=== PATIENT | female | born 1925 | race Caucasian/White ===

== ENCOUNTER → 2016-10-05 | Outpatient (CLI) | payer MEDICARE ==
--- NOTE | 2016-10-11 09:34 | EKG ---
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 SOME P WAVES WERE SEEN BUT DIFFICULT TO IDENTIFY IN THE COMPUTER, NO PAPER RHYTHM STRIPS. THERE IS A BBB PRESENT NO SIGNIFICANT TACHYCARDIA. THERE WAS A PAUSE OF 1.9 SECONDS. BRADICARDIA WITH A RATE OF 42 Electronically Signed On 10-11-2016 19:45:04 CDT by Jeferson Ghotra
== END | disposition home or self-care (01) ==
LOC: RT 14:46
PROVIDERS: ATTEND Internal Medicine Cardiovascular Disease
DX: I48.91 Unspecified atrial fibrillation (principal); R00.1 Bradycardia, unspecified
CPT/HCPCS: 93226

== ENCOUNTER 2017-03-07 15:50 | Emergency (ER) | payer MEDICARE ==
[~2017-03-07] VITALS: Ht 142.2 cm; Wt 46.7 kg
[2017-03-07] MEDS ORDERED: CYCLOBENZAPRINE 10 MG TABLET. PO ONE (17:20)
--- NOTE | 2017-03-07 17:29 | RAD ---
CT C-Spine without contrast: Clinical History: CERVICAL SPINE PAIN SINCE , NO INJURY Technique: Axial helical images of the cervical spine were obtained without contrast, axial coronal and sagittal reconstruction was performed. Findings: There is no loss of vertebral body stature. There is no prevertebral soft tissue swelling. The vertebral bodies are well aligned. The C1-C2 relationship is normal. The visualized osseous structures appear normal. Evaluation of the central canal is limited without contrast. There is multiple posterior disc bulges resulting in flattening of the thecal sac. There does not appear to be gross flattening of the cervical cord. There is moderate narrowing of multiple neuroforamen. Impression: No acute findings. Clinical correlation suggested. PQRS Compliance Statement: One or more of the following individualized dose reduction techniques were utilized for this examination: 1. Automated exposure control 2. Adjustment of the mA and/or kV according to patient size 3. Use of iterative reconstruction technique Electronically signed by: Silvio Baer III, MD (03/07/2017 5:25 PM) [facility]
[2017-03-07 17:31] VITALS: BP 163/90
[2017-03-07] MEDS ORDERED: CYCL5TAB PO (17:45)
[2017-03-07] MEDS ORDERED: ACET-704 PO (17:45)
--- NOTE | 2017-03-07 17:47 | PHYS DOC ---
Past History Past Medical History: Hypertension Past Surgical History: Other (hiatal hernia) Smoking: Non-smoker Adult General Chief Complaint Chief Complaint: Neck Pain HPI HPI 89-year-old male patient complaining of left-sided neck pain for the last one month as a constant pain that getting for sick movement. Patient states the pain radiated to her left shoulder and denies focal neuro deficit, fever and chills, injury, headache, chest pain, shortness of breath. Rated her pain 10 over 10 and states she was seen by her primary care physician and was told she had this pain because of stress and called her doctor today who suggested physical therapy but patient states she his muscle relaxer because of muscle strain. Review of Systems Review of Systems Constitutional: Denies fever or chills [] Eyes: Denies change in visual acuity, redness, or eye pain [] HENT: Denies nasal congestion or sore throat [] Respiratory: Denies cough or shortness of breath [] Cardiovascular: No additional information not addressed in HPI [] GI: Denies abdominal pain, nausea, vomiting, bloody stools or diarrhea [] : Denies dysuria or hematuria [] Musculoskeletal: Denies back pain or joint pain, reports neck pain [] Integument: Denies rash or skin lesions [] Neurologic: Denies headache, focal weakness or sensory changes [] Endocrine: Denies polyuria or polydipsia [] All other systems were reviewed and found to be within normal limits, except as documented in this note. Current Medications Current Medications Current Medications Medications (Trade) Dose Ordered Sig/Kasandra Start Time Stop Time Status Last Admin Dose Admin Cyclobenzaprine HCl (Flexeril) 5 mg 1X ONCE 03/07/17 17:20 03/07/17 17:21 DC 03/07/17 17:08 5 MG Fentanyl Citrate (Fentanyl 2ml Vial) 25 mcg 1X ONCE 03/07/17 17:20 03/07/17 17:21 DC 03/07/17 17:08 25 MCG Allergies Allergies Allergies Uncoded Allergies Type Severity Reaction Last Updated Verified pcn Allergy Unknown 03/07/17 Physical Exam Physical Exam Constitutional: Well developed, well nourished, moderate distress, non-toxic appearance. [] HENT: Normocephalic, atraumatic, bilateral external ears normal, oropharynx moist, no oral exudates, nose normal. [] Eyes: PERRLA, EOMI, conjunctiva normal, no discharge. [] Neck: Supple, no deformity, muscle spasm in left paraspinal area, no midline tenderness, no meningeal sign Cardiovascular:Heart rate regular rhythm, no murmur [] Lungs & Thorax: Bilateral breath sounds clear to auscultation [] Abdomen: Bowel sounds normal, soft, no tenderness, no masses, no pulsatile masses. [] Skin: Warm, dry, no erythema, no rash. [] Back: No tenderness, no CVA tenderness. [] Extremities: No tenderness, no cyanosis, no clubbing, ROM intact, no edema. [] Neurologic: Alert and oriented X 3, normal motor function, normal sensory function, no focal deficits noted. [] Psychologic: Affect normal, judgement normal, mood normal. [] Current Patient Data Vital Signs Vital Signs Date Time Temp Pulse Resp B/P (MAP) Pulse Ox O2 Delivery O2 Flow Rate FiO2 03/07/17 17:31 55 20 163/90 (114) 96 Room Air EKG EKG [] Radiology/Procedures Radiology/Procedures [] Course & Med Decision Making Course & Med Decision Making Pertinent Imaging studies reviewed. (See chart for details) Patient felt better with treatment with Fentanyl and flexeryl . Cervical spine CT was unremarkable. Plan discharge patient home with diagnosis of cervical sprain. Dragon Disclaimer Dragon Disclaimer This electronic medical record was generated, in whole or in part, using a voice recognition dictation system. Departure Departure: Impression: Primary Impression: Cervical sprain Disposition: HOME, SELF-CARE (At 1741) Condition: IMPROVED Referrals: BOONE GUEVARA MD (PCP) Patient Instructions: Cervical Sprain Additional Instructions: your neck urinary Follow-up with your primary care physician in 2-3 days Scripts Cyclobenzaprine Hcl (CYCLOBENZAPRINE HCL) 5 Mg Tablet 1 TAB PO TID, #20 TAB Prov: SUMMER LAMBERT MD 03/07/17 Acetaminophen With Codeine (TYLENOL WITH CODEINE #3 TABLET) 1 Each Tablet 1 TAB PO Q6HRS, #20 TAB Prov: SUMMER LAMBERT MD 03/07/17 SUMMER LAMBERT MD Mar 07, 2017 17:47
== END 2017-03-07 17:55 | disposition home or self-care (01) ==
LOC: ER 15:50
DX: S13.4XXA Sprain of ligaments of cervical spine, initial encounter (principal); I10 Essential (primary) hypertension; Z88.0 Allergy status to penicillin; X58.XXXA Exposure to other specified factors, initial encounter; Y93.89 Activity, other specified; Y99.8 Other external cause status; Y92.89 Other specified places as the place of occurrence of the external cause
CPT/HCPCS: 72125; 96372; 99284; J3010

== ENCOUNTER 2017-07-13 13:08 | Emergency (ER) | payer MEDICARE ==
[~2017-07-13] VITALS: Ht 142.2 cm; Wt 47.6 kg
[~2017-07-13 13:08] MED LIST: ACET-704 PO; CYCL5TAB PO
--- NOTE | 2017-07-13 13:54 | RAD ---
EXAM: Right knee, 3 views. HISTORY: Pain after moving furniture. COMPARISON: None. FINDINGS: Frontal, lateral and oblique views of the right knee are obtained. There is bone demineralization, limiting evaluation of bony detail. There is medial and lateral compartment chondrocalcinosis. There is enthesopathy along the superior patella. There are vascular calcifications. There is no acute fracture, dislocation or subluxation. IMPRESSION: 1. No acute osseous finding. 2. Bone demineralization. Electronically signed by: Prema Rivero MD (07/13/2017 1:51 PM) [place] [id number]
--- NOTE | 2017-07-13 14:05 | PHYS DOC ---
Past History Past Medical History: Hypertension Past Surgical History: Other Smoking: Non-smoker Alcohol Use: None Drug Use: None Adult General Chief Complaint Chief Complaint: KNEE INJURY HPI HPI 89-year-old woman patient states she was in the garage with a friend and wanted to brick picker something from the ground and twisted her right knee while she wanted to prevent of a fall. Patient denies having fallen or other injuries. Patient noticed pain in complaining of different feeling in lateral side of her knee. Patient denies focal neuro deficit. Review of Systems Review of Systems Constitutional: Denies fever or chills [] Eyes: Denies change in visual acuity, redness, or eye pain [] HENT: Denies nasal congestion or sore throat [] Respiratory: Denies cough or shortness of breath [] Cardiovascular: No additional information not addressed in HPI [] GI: Denies abdominal pain, nausea, vomiting, bloody stools or diarrhea [] : Denies dysuria or hematuria [] Musculoskeletal: Denies back pain, reports joint pain [] Integument: Denies rash or skin lesions [] Neurologic: Denies headache, focal weakness or sensory changes [] Endocrine: Denies polyuria or polydipsia [] All other systems were reviewed and found to be within normal limits, except as documented in this note. Allergies Allergies Allergies Coded Allergies Type Severity Reaction Last Updated Verified clopidogrel Allergy Unknown 07/13/17 Yes Uncoded Allergies Type Severity Reaction Last Updated Verified pcn Allergy Unknown 03/07/17 Physical Exam Physical Exam Constitutional: Well developed, well nourished, no acute distress, non-toxic appearance. [] HENT: Normocephalic, atraumatic Eyes: PERRLA, EOMI, conjunctiva normal, no discharge. [] Neck: Normal range of motion, no tenderness, supple, no stridor. [] Cardiovascular:Heart rate regular rhythm, no murmur [] Lungs & Thorax: Bilateral breath sounds clear to auscultation [] Skin: Warm, dry, no erythema, no rash. [] Back: No tenderness, no CVA tenderness. [] Extremities: No tenderness, no cyanosis, no clubbing, ROM intact, no edema, no sign of injury to right knee. [] Neurologic: Alert and oriented X 3, normal motor function, normal sensory function, no focal deficits noted. [] Psychologic: Affect normal, judgement normal, mood normal. [] EKG EKG [] Radiology/Procedures Radiology/Procedures [[address], [place] [address] IMAGING REPORT Signed PATIENT: DANNY LAMAS ACCOUNT: [id number] : 1925 LOCATION: ER AGE: 89 SEX: F EXAM STATUS: REG ER ORD. PHYSICIAN: SUMMER LAMBERT MD REASON: injury PROCEDURE: KNEE RIGHT 3V EXAM: Right knee, 3 views. HISTORY: Pain after moving furniture. COMPARISON: None. FINDINGS: Frontal, lateral and oblique views of the right knee are obtained. There is bone demineralization, limiting evaluation of bony detail. There is medial and lateral compartment chondrocalcinosis. There is enthesopathy along the superior patella. There are vascular calcifications. There is no acute fracture, dislocation or subluxation. IMPRESSION: 1. No acute osseous finding. 2. Bone demineralization. Electronically signed by: Prema Medina MD (07/13/2017 1:51 PM) [facility] DICTATED AND SIGNED BY: PREMA MEDINA MD DATE: 07/13/17 1824 CC: BOONE GUEVARA MD; SUMMER LAMBERT MD ~ ] Course & Med Decision Making Course & Med Decision Making Pertinent Imaging studies reviewed. (See chart for details) []Evaluation of patient in ER showed 89-year-old female patient with complaining of right knee discomfort feeling after she twisted her knee. Patient did not have tenderness or limited range of motion and x-ray did not show fracture. Roscoe wrap was applied and patient instructed to apply ice and follow up with her primary care physician. Dragon Disclaimer Dragon Disclaimer This electronic medical record was generated, in whole or in part, using a voice recognition dictation system. Departure Departure: Impression: Primary Impression: Right knee sprain Disposition: HOME, SELF-CARE (At 1404) Condition: STABLE Referrals: BOONE GUEVARA MD (PCP) Patient Instructions: Knee Sprain Additional Instructions: Apply ice and affected area Follow-up with your primary care physician in 3-5 days Return to ER if not getting better SUMMER LAMBERT MD Jul 13, 2017 14:05
[2017-07-13 14:15] VITALS: BP 172/66
== END 2017-07-13 14:15 | disposition home or self-care (01) ==
LOC: ER 13:08
DX: S83.91XA Sprain of unspecified site of right knee, initial encounter (principal); I10 Essential (primary) hypertension; Z88.8 Allergy status to other drugs, medicaments and biological substances; X50.1XXA Overexertion from prolonged static or awkward postures, initial encounter; Y93.89 Activity, other specified; Y99.8 Other external cause status; Y92.59 Other trade areas as the place of occurrence of the external cause
CPT/HCPCS: 73562; 99284